=== PATIENT | male | born 1995 | race Hispanic/Latino ===

== ENCOUNTER 2022-04-10 09:58 | Emergency (ER) | payer OTHER ==
[~2022-04-10] VITALS: Ht 175.3 cm; Wt 107.0 kg
[2022-04-10] MEDS ORDERED: KETOROLAC TROMETHAMINE 30 MG/ML VIAL IM ONE (10:23)
[2022-04-10] MEDS ORDERED: NAPROXEN250 MG PO (11:29)
== END 2022-04-10 11:35 | disposition home or self-care (01) ==
LOC: ER 10:48
DX: M54.2 Cervicalgia (principal); S09.90XA Unspecified injury of head, initial encounter; R07.89 Other chest pain; M54.50 Low back pain, unspecified; W17.89XA Other fall from one level to another, initial encounter; Y92.89 Other specified places as the place of occurrence of the external cause; Y04.8XXA Assault by other bodily force, initial encounter
CPT/HCPCS: 70450; 71046; 72125; 72170; 73562; 99283; J1885